=== PATIENT | female | born 1960 | race Caucasian/White ===

== ENCOUNTER 2017-05-17 11:50 | Emergency (ER) | payer BC, OTHER ==
[~2017-05-17] VITALS: Ht 152.4 cm; Wt 54.4 kg
[~2017-05-17 11:50] MED LIST: CYCL5TAB PO; LEFL20 PO; LORT5TAB PO; METH4PAK PO
[2017-05-17 12:04] VITALS: BP 134/95; PULSE 97; RESP 16; TEMP 98.8; O2SAT 96
[2017-05-17] MEDS ORDERED: METH8TAB3 PO (12:38)
[2017-05-17] MEDS ORDERED: SULF500T3 PO (12:38)
[2017-05-17 13:20] LABS: BILIRUBIN, URINE NEG (NEG); BLOOD, URINE NEG (NEG); GLUCOSE,URINE NEG (NEG); KETONE, URINE NEG (NEG); NITRITE,URINE NEG (NEG); URINE LEUKOCYTE ESTERASE NEG (NEG)
[2017-05-17 13:25] LABS: URINE COLOR YELLOW (YELLW/STRAW)
[2017-05-17 13:26] LABS: SQUAMOUS EPITHELIAL CELL URINE 0-5 /hpf (0-5)
[2017-05-17] MEDS ORDERED: TRAM50 PO (13:44)
--- NOTE | 2017-05-17 13:45 | PD ---
HPI Chief Complaint: Back/ Neck Pain or Injury Time Seen by Provider: 12:47 Travel History International Travel<30 days: No Contact w/Intl Traveler<30days: No Traveled to known affect area: No History of Present Illness HPI 56-year-old female here for evaluation of right low back pain 3 days. She reports the pain as aching/throbbing and nonradiating. Pain is worse with movement and slightly relieved with rest. She denies fever or chills. No urinary frequency or dysuria. No abdominal pain. No vaginal discharge. PFSH Past Medical History Medical History: Denies Significant Hx Cancer: No Diabetes: No Diminished Hearing: No Fibromyalgia: Yes Hepatitis: No Hiatal Hernia: No Immunizations Current: Yes Thyroid Disease: No Tetanus Vaccination: < 5 Years Influenza Vaccination: No ?: Not Menopausal: Yes Past Surgical History Pacemaker: No Other Surgery: Yes Social History Alcohol Use: No Tobacco Use: Yes (1 PPD) Substance Use: No Allergies-Medications (Allergen,Severity, Reaction): Coded Allergies: No Known Allergies (Verified Adverse Reaction, Unknown, 05/17/17) Reported Meds & Prescriptions Reported Meds & Active Scripts Active Ultram (Tramadol HCl) 50 Mg Tab 50 Mg PO Q6H PRN Reported Methylprednisolone 8 Mg Tab 8 Mg PO DAILY Sulfasalazine 500 Mg Tab 1,000 Mg PO BID Review of Systems Except as stated in HPI: all other systems reviewed are Neg General / Constitutional: No: Fever Eyes: No: Visual changes HENT: No: Headaches Cardiovascular: No: Chest Pain or Discomfort Respiratory: No: Shortness of Breath Gastrointestinal: No: Abdominal Pain Genitourinary: No: Dysuria Musculoskeletal: Positive: Pain (right low back/flank pain) Skin: No Rash Physical Exam Narrative GENERAL: Alert and well-appearing 48-year-old female SKIN: Warm and dry. No rash HEAD: Atraumatic. Normocephalic. EYES: No injection or drainage. NECK: Supple CARDIOVASCULAR: Regular rate and rhythm. RESPIRATORY: No accessory muscle use. Clear to auscultation. Breath sounds equal bilaterally. GASTROINTESTINAL: Abdomen soft, non-tender, nondistended. No rebound or guarding MUSCULOSKELETAL: Extremities without clubbing, cyanosis, or edema. No obvious deformities. NEUROLOGICAL: Awake and alert. No obvious cranial nerve deficits. Motor grossly within normal limits. Five out of 5 muscle strength in the arms and legs. Normal speech. BACK: Generalized right sided tenderness. No rash. No point tenderness on palpation of the spine. Data Data Last Documented VS Vital Signs Date Time Temp Pulse Resp B/P (MAP) Pulse Ox O2 Delivery O2 Flow Rate FiO2 05/17/17 12:04 98.8 97 16 134/95 (108) 96 Orders Orders Urinalysis - C+S If Indicated (05/17/17 12:51) Ed Discharge Order (05/17/17 13:45) Labs Laboratory Tests Test 05/17/17 13:00 Urine Collection Type CLEAN CATCH Urine Color YELLOW Urine Turbidity CLEAR Urine pH 6.0 Urine Specific [place] 1.019 Urine Protein NEG mg/dL Urine Glucose (UA) NEG mg/dL Urine Ketones NEG mg/dL Urine Occult Blood NEG Urine Nitrite NEG Urine Bilirubin NEG Urine Leukocyte Esterase NEG Urine Squamous Epithelial Cells 0-5 /hpf Microscopic Urinalysis Comment CULT NOT INDICATED Urine Collection Time 1300 MDM Medical Decision Making Medical Screen Exam Complete: Yes Emergency Medical Condition: Yes Differential Diagnosis Lumbar strain, nephrolithiasis, pyelonephritis Narrative Course 56-year-old female here for evaluation of right low back pain 3 days. She is nontoxic appearing. Her vital signs are stable. She has mild to moderate tenderness in the right lumbar region. The spine is nontender. UA was negative for infection or RBCs. CT scan was offered to rule out kidney stone. Patient declined. She'll be treated for potential lumbar strain and instructed to follow-up with her primary doctor return if she had new or worsening symptoms Diagnosis Primary Impression: Lumbar strain Qualified Codes: S39.012A - Strain of muscle, fascia and tendon of lower back , initial encounter Referrals: Primary Care Physician Additional Instructions: Take ibuprofen 800 mg every 6 hours as needed for pain. Ultram as needed for severe pain. Return to emergency department if he developed new or worsening symptoms such as severe increasing pain, fever, abdominal pain. Scripts Tramadol (Ultram) 50 Mg Tab 50 MG PO Q6H Y for PAIN, #12 TAB 0 Refills Prov: Zayda Rodriguez 05/17/17 Disposition: 01 DISCHARGE HOME Condition: Stable Zayda Rodriguez May 17, 2017 13:45
== END 2017-05-17 13:53 | disposition home or self-care (01) ==
LOC: PHEFT 11:50
DX: S39.012A Strain of muscle, fascia and tendon of lower back, initial encounter (principal); M79.7 Fibromyalgia; F17.210 Nicotine dependence, cigarettes, uncomplicated; X58.XXXA Exposure to other specified factors, initial encounter
CPT/HCPCS: 81001; 99283